=== PATIENT | female | born 1960 | race Caucasian/White ===

== ENCOUNTER 2020-06-07 18:26 | Emergency (ER) | payer BC, SELFPAY ==
--- NOTE | 2020-06-07 18:28 | ED.GENADULT ---
HPI - General Adult General Chief complaint: Skin/Abscess/Foreign Body Stated complaint: rash Time Seen by Provider: 06/07/20 18:28 Source: patient Mode of arrival: ambulatory Limitations: no limitations History of Present Illness HPI narrative: 59-year-old female patient presents to the [facility] with complaints of a rash to the right breast that started last night. Patient states she has had a little bit of itching and states it is painful when touching the rash. Patient states that she recently had a femoral stent placed into the right femoral about 2 weeks ago and is currently on Xarelto. Patient states she has been feeling blah . Denies any fevers, body aches or chills. Denies any chest pain or shortness of breath. Denies any abdominal pain, nausea, vomiting or diarrhea. Patient states she does feel slightly achy in the chest around the area of the rash. Related Data Home Medications Medication Instructions Recorded Confirmed gabapentin 600 mg BID 06/07/20 06/07/20 rivaroxaban [Xarelto] 20 mg DAILY 06/07/20 06/07/20 ropinirole 0.5 mg HS 06/07/20 06/07/20 thyroid (pork) [[place] Thyroid] See Rx Instructions .ROUTE .COMPLEX 06/07/20 06/07/20 Allergies Allergy/AdvReac Type Severity Reaction Status Date / Time No Known Allergies Allergy Verified 06/07/20 18:28 Review of Systems Review of Systems: Narrative: CONSTITUTIONAL: Denies fever, chills, or sweats. EYES: Denies visual changes, redness, or discharge. ENT: Denies rhinorrhea, congestion, sore throat, or otalgia. CARDIOVASCULAR: Denies chest pain, palpitations, or edema. RESPIRATORY: Denies cough or dyspnea. GASTROINTESTINAL: Denies abdominal pain, nausea, vomiting, or diarrhea. GENITOURINARY: Denies dysuria or hematuria. SKIN: Positive rash right breast since yesterday MUSCULOSKELETAL: Denies back pain, joint pain, or myalgia. NEUROLOGIC: Denies headache, numbness, or weakness. PSYCHIATRIC: Denies anxiety or depression. [facility] Past Medical History Medical History (Updated 06/07/20 @ 18:42 by ESTELITA Matos) Arthritis Depression Factor V deficiency Musculoskeletal disorder Right lateral meniscus tear Restless leg syndrome Stenosis of femoral artery stent placed 2019 Surgical History Surgical History (Updated 06/07/20 @ 18:30 by ESTELITA Matos) History of mandibular surgery History of tubal ligation Family History Family History Other Family history of arthritis Family history of malignant neoplasm Social History Social History Smoking status: Never smoker Gender identity (if verbalized by the patient): Female Comments At the time of my signature I agree with nursing past medical history, surgical, social, and family history. There is no relevant family history pertinent to the presenting complaint. Exam Narrative: Exam Narrative: GENERAL: Well-appearing, well-nourished, and in no acute distress. HEAD: Normocephalic, atraumatic. EYES: PERRLA and EOMI. ENT: Nares clear, no rhinorrhea or epistaxis. Mucous membranes moist. NECK: Supple. No lymphadenopathy CHEST: Clear to auscultation. No respiratory distress. HEART: Regular rate and rhythm. No murmur heard. Normal peripheral pulses. ABDOMEN: Soft, nontender, nondistended, normal active bowel sounds. EXTREMITIES: Normal range of motion. No edema. SKIN: Warm, dry, positive raised papules with vesicles noted to the right breast and a cluster with erythema. Patient has another area of erythemic area towards the middle of the right breast but it does not cross midline. There is no open wounds or drainage noted. NEURO: No focal deficits. Alert and oriented x3. Course Vital Signs Vital signs: Vital Signs Temperature 36.3 C L 06/07/20 18:37 Pulse Rate 86 06/07/20 18:37 Respiratory Rate 16 06/07/20 18:37 Blood Pressure 158/84 H 06/07/20 18:37 Pulse Ox
[2020-06-07 18:37] VITALS: BP 158/84; PULSE 86; RESP 16; TEMP 36.3; O2SAT 100
== END 2020-06-07 18:47 | disposition home or self-care (01) ==
PROVIDERS: Emergency Provider Nurse Practitioner Family; PCP Family Medicine Sports Medicine
DX: B02.9 Zoster without complications (principal); M19.90 Unspecified osteoarthritis, unspecified site; G25.81 Restless legs syndrome; D68.51 Activated protein C resistance; Z95.820 Peripheral vascular angioplasty status with implants and grafts; Z79.01 Long term (current) use of anticoagulants
CPT/HCPCS: 99213; G0463

== ENCOUNTER 2022-02-07 15:22 | Emergency (ER) | payer BC, SELFPAY ==
[2022-02-07 15:27] VITALS: BP 163/70; PULSE 74; RESP 16; TEMP 36.7; O2SAT 98
--- NOTE | 2022-02-07 15:53 | ED.EAR ---
HPI - Ear Problem General Chief complaint: Ear Stated complaint: Rt Ear Irritation Time Seen by Provider: 02/07/22 15:35 History of Present Illness HPI Narrative: Radha Pederson is a 61 yo female with PMH arthritis, depression, factor V deficiency,who comes here with wax in R ear. has tried debrox 1 day only. Related Data Home Medications Medication Instructions Recorded Confirmed rivaroxaban 20 mg tablet (Xarelto) 20 mg DAILY 06/07/20 02/07/22 ropinirole 0.25 mg tablet 0.5 mg HS 06/07/20 02/07/22 thyroid (pork) 30 mg tablet See Rx Instructions .Route .COMPLEX 06/07/20 02/07/22 ([place] Thyroid) Allergies Allergy/AdvReac Type Severity Reaction Status Date / Time No Known Allergies Allergy Verified 02/07/22 15:24 Review of Systems Review of Systems: CONSTITUTIONAL: Denies fever, chills, sweats. EYES: Denies visual changes, redness, discharge. ENT: Denies rhinorrhea, congestion, sore throat, otalgia. Right ear wax buildup CARDIOVASCULAR: Denies chest pain, palpitations, edema. RESPIRATORY: Denies dyspnea, wheezing, cough GASTROINTESTINAL: Denies abdominal pain, nausea, vomiting, diarrhea. GENITOURINARY: Denies dysuria, hematuria, abnormal discharge SKIN: Denies rash or itching. NEUROLOGIC: Denies numbness, or focal weakness. PSYCHIATRIC: Denies anxiety or depression. [facility] Past Medical History Medical History Arthritis Depression Factor V deficiency Musculoskeletal disorder Right lateral meniscus tear Restless leg syndrome Stenosis of femoral artery stent placed 2019 Surgical History Surgical History History of mandibular surgery History of tubal ligation Family History Family History Other Family history of arthritis Family history of malignant neoplasm Social History Social History (Updated 02/07/22 @ 15:55 by Shirley Garcia CNP) Smoking status: Never smoker Alcohol intake: current Gender identity (if verbalized by the patient): Female Comments At time of signature, I agree with nursing past medical, surgical, social and family history. There is no relevant family history pertinent to the presenting complaint. Exam Narrative: GENERAL: This is a well-nourished, well-developed patient, in nodistress. HEAD: normocephalic, atraumatic. EYES: PERRL. Sclera clear/white. Vision is grossly intact. EARS: External ears normal, auditory canals clearon L, some cerumen R ear. Hearing grossly intact. NOSE: External nose normal without nasal discharge, nares without redness, no rhinorrhea. THROAT: Mucous membranes moist, NECK: Neck supple, non-tender CARDIOVASCULAR: Regular rate and rhythm without murmurs, gallops, or rubs. RESPIRATORY: Clear to auscultation. Breath sounds equal bilaterally. No wheezes, rales, or rhonchi. GASTROINTESTINAL: Not done SKIN: warm, intact with no suspicious lesions or rash, good texture and turgor. NEURO: awake, alert, and oriented to person, place and time. There were no obvious focal neurologic abnormalities. Steady gait EXTREMITIES: Normal range of motion. BACK: Nontender without deformity Course Course Emergency Course: Patient comes with wax in right ear Ear flushed with mixture of peroxide and warm water with removal of small amount of wax did not use any curette Patient instructed to use Debrox 4 days in a row once a month to keep ears clear Level of Care: Express Care Visit Vital Signs Vital signs: Vital Signs Temperature 98.1 F 02/07/22 15:27 Pulse Rate 74 02/07/22 15:27 Respiratory Rate 16 02/07/22 15:27 Blood Pressure 163/70 H 02/07/22 15:27 Pulse Oximetry 98 02/07/22 15:27 Oxygen Delivery Room Air 02/07/22 15:27 Temperature 98.1 F 02/07/22 15:27 Pulse Rate 74 02/07/22 15:27 Respiratory Rate 16 02/07/22 15:27 Blood Pressure 163/70 H 02/07
== END 2022-02-07 16:04 | disposition home or self-care (01) ==
PROVIDERS: Emergency Provider Nurse Practitioner; PCP Family Medicine Sports Medicine
DX: H61.21 Impacted cerumen, right ear (principal); M19.90 Unspecified osteoarthritis, unspecified site; D68.51 Activated protein C resistance; G25.81 Restless legs syndrome; Z95.820 Peripheral vascular angioplasty status with implants and grafts; Z79.01 Long term (current) use of anticoagulants
CPT/HCPCS: 69209; 99212; G0463

== ENCOUNTER → 2022-10-08 16:11 | Outpatient (CLI) | payer BC, SELFPAY ==
--- NOTE | ~2022-10-08 | MR_ITS ---
EXAMINATION: MR shoulder LT wo con DATE: 10/08/2022 16:56 INDICATION: Lateral left shoulder pain. TECHNIQUE: Magnetic resonance imaging (MRI) of the left shoulder was performed without intravenous co ntrast. Sequences included axial PD-weighted FS FSE, coronal oblique PD-weighted FS FSE and T2-weight ed FS FSE, and sagittal oblique T2-weighted FS FSE and T1-weighted FSE. COMPARISON: Left shoulder radiographs 09/20/2022 FINDINGS: Coracoacromial arch: The acromion undersurface is flat in morphology (type I). There is severe acromioclavicular joint ost eoarthritis including inferiorly directed osteophytes. There is a physiologic volume of fluid in suba cromial/subdeltoid bursa. Rotator cuff: There is mild supraspinatus and infraspinatus tendinopathy. Teres minor tendon is normal. Subscapular is tendon is normal. There is no fatty atrophy of the rotator cuff muscle bellies. Biceps tendon and glenoid labrum: Biceps tendon is in bicipital groove. There is mild intra-articular biceps tendinopathy. There is deg enerative tearing of the glenoid labrum superiorly and posteriorly. Fluid: There is a moderate-sized glenohumeral joint effusion. Bones/cartilage: There is cartilage surface irregularity of glenoid. There is deep partial thickness cartilage loss of humeral head superiorly. Osteophytes are noted. IMPRESSION: 1. Moderate glenohumeral joint chondrosis. 2. Moderate-sized glenohumeral joint effusion. 3. Mild rotator cuff tendinopathy. No tear. 4. Severe acromioclavicular joint osteoarthritis. 5. Mild intra-articular biceps tendinopathy. Reviewed, dictated and finalized at location A. [employer] [facility]
== END ==
PROVIDERS: PCP Family Medicine Sports Medicine; Visit Provider Nurse Practitioner Family
DX: M19.012 Primary osteoarthritis, left shoulder (principal); M25.412 Effusion, left shoulder
CPT/HCPCS: 73221